=== PATIENT | female | born 2000 | race Caucasian/White ===

== ENCOUNTER 2023-04-21 14:03 | Emergency (ER) | payer OTHER ==
[2023-04-21 14:48] LABS: Absolute Lymphocytes (CBC) 2.2 K/uL (0.7-4.9); Hematocrit 39.8 % (36.0-45.0); Lymphocytes % 30.1 % (15.3-44.8); MCV 90.2 fL (80-100); MPV 10.1 fL (7.6-11.3); Platelets 186 thou/uL (152-406); RBC Red Blood Cell Count 4.42 M/uL (3.86-4.86)
[2023-04-21 15:13] LABS: ALT/SGPT 22 U/L (13-56); AST/SGOT 13 U/L (15-37); Albumin 3.8 g/dL (3.4-5.0); Alkaline Phosphatase 45 U/L (45-117); BUN Blood Urea Nitrogen 7 mg/dL (7-18); Bicarbonate 21 mEq/L (21-32); Bilirubin Total 0.3 mg/dL (0.2-1.0); Glomerular Filtration Rate 90 ml/min (=/>90); Glucose Level 88 mg/dL (74-106); Potassium 3.7 mEq/L (3.5-5.1); Protein, Total 7.2 g/dL (6.4-8.2); Sodium Level 138 mEq/L (136-145)
[2023-04-21 15:19] LABS: Specific Gravity 1.028 (1.005-1.030)
[2023-04-21 15:29] LABS: Barbiturates NEGATIVE (NEGATIVE); Benzodiazepines NEGATIVE (NEGATIVE); Cocaine NEGATIVE (NEGATIVE); METHAMPHETAM NEGATIVE (NEGATIVE); Methadone NEGATIVE (NEGATIVE); Opiates NEGATIVE (NEGATIVE); Phencyclidine NEGATIVE (NEGATIVE); THC Cannibis NEGATIVE (NEGATIVE)
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
[2023-04-21] MEDS ORDERED: SERTRALINE HCL 100 MG TAB ONE (21:41)
[2023-04-22 03:51] VITALS: TEMP 98
[2023-04-22 03:56] VITALS: BP 127/81; O2SAT 97
--- NOTE | 2023-04-23 18:03 | EKG ---
Test Date: 2023-04-21 Test Time: 14:39:38 Furniture Repair Technician: [employer] MEASUREMENT RESULTS: Intervals: Rate: 103 MO: 166 QRSD: 86 QT: 350 QTc: 458 [place]: P: 68 MO: 166 QRS: 70 T: 63 INTERPRETIVE STATEMENTS: Sinus tachycardia Otherwise normal ECG No previous ECG available for comparison Electronically Signed On 04-23-23 17:57:57 CDT by Beka De La Cruz
== END 2023-04-22 03:33 ==
LOC: ER 14:03
DX: R45.851 Suicidal ideations (principal); Z88.1 Allergy status to other antibiotic agents
CPT/HCPCS: 36415; 80053; 80143; 80179; 80307; 81025; 82077; 85025; 93005; 99285